=== PATIENT | male | born 1940 ===

== ENCOUNTER 2016-10-29 23:40 | Emergency (ER) | payer MEDICARE ==
[2016-10-30 00:14] LABS: HEMATOCRIT 41.9 % (32.0-52.0); HEMOGLOBIN 14.1 gm/l (14.0-18.0); IMM NEUT% 0.2 % (0-1); MEAN CELL VOLUME 96.5 fl (80.0-94.0); MEAN CORPUSCULAR HEMOGLOBIN 32.5 pg (27.0-31.0); MEAN CORPUSCULAR HGB CONC 33.7 g/dl (33.0-37.0); NEUT % 41.4 % (43-75); PLATELET COUNT 199 K/mm3 (130-400); RED CELL DISTRIBUTION WIDTH 12.7 % (11.5-14.5)
[2016-10-30 00:15] LABS: ABSOLUTE NEUTROPHIL COUNT 2.2 K/mm3 (1.8-7.7); BASO # 0.1 K/mm3 (0.0-0.2); BASO % 1.1 % (0.2-1.0); EOS # 0.4 (0.0-0.5); EOS % 6.8 % (0.9-2.9); LYMPH # 2.1 (1.0-4.8); LYMPH % 38.7 % (15-45); MONO # 0.6 (0.0-0.8); MONO % 11.8 % (4-12)
[2016-10-30 00:30] LABS: TROPONIN I < 0.01 ng/ml (0.0-0.06)
[2016-10-30 00:33] LABS: CKMB ISOENZYME 1.8 ng/ml (0.6-6.3)
[2016-10-30 00:36] LABS: ALB/GLOB RATIO 1.5 (>1.0); ALBUMIN 4.3 gm/dL (3.5-5.7); CALCIUM 9.2 mg/dL (8.6-10.3)
[2016-10-30] MEDS ORDERED: SODIUM CHLORIDE 0.9% 500 ML ONE (00:49)
[2016-10-30] MEDS ORDERED: ASPIRIN CHEWTAB 81 MG TABLET ONE (01:32)
[2016-10-30] MEDS ORDERED: MECLIZINE HCL 25 MG TABLET ONE (01:32)
--- NOTE | 2016-10-30 07:24 | CT ---
HEAD W/O CON History: Dizziness with hypertension. Comparison: None. Procedure: 1 mm axial images were obtained through the head from the vertex to the base of the skull without intravenous contrast. Stacked reconstructed 5 mm images were then obtained in the axial, coronal and sagittal planes. Findings: The lateral ventricles, cerebral sulci and sylvian fissures are of relatively normal size and configuration. No evidence of midline shift is seen. No mass or mass effect is identified. No evidence of intra or extra-axial fluid collections or hemorrhage is seen. Mild periventricular deep white matter low-attenuation changes are observed. The basilar cisterns are uneffaced. The posterior fossa structures are unremarkable. Bone windows demonstrate no acute osseous abnormalities. Impression: 1. No findings of acute intracranial hemorrhage. 2. Mild periventricular deep white matter low-attenuation changes most consistent with small vessel ischemia considering patient age. The findings were called to the emergency room at 0050 hours, 10/30/2016, by [facility].
== END 2016-10-30 01:47 | disposition home or self-care (01) ==
LOC: ED 23:40
DX: R42 Dizziness and giddiness (principal); R11.0 Nausea
CPT/HCPCS: 85025; 82553; 80053; 83735; 84484; 70450; 99284 ×2; 96360; 93005; A9270 ×2; J7040